=== PATIENT | female | born 1970 | race Caucasian/White ===

== ENCOUNTER 2022-11-08 22:51 | Emergency (ER) | payer BC, SELFPAY ==
[2022-11-08 23:02] VITALS: BP 113/67; PULSE 64; RESP 16; TEMP 36.1; O2SAT 97; BMI 32.6
--- NOTE | 2022-11-08 23:12 | ED.NURSE ---
Last tetanus was 09/10/21
--- NOTE | 2022-11-09 00:02 | ED.NURSE ---
Fingers soaked in hibaclense
[2022-11-09 01:22] VITALS: BP 128/68; PULSE 83; RESP 16
--- NOTE | 2022-11-13 02:48 | ED_ITS ---
HPI - Wound/Laceration General Chief Complaint: Laceration/Wound Stated Complaint: slammed right hand in the door of her car Time Seen by Provider: 11/08/22 22:53 History of Present Illness HPI narrative: 52-year-old woman presenting to the emergency department with concern of lacerations to her right hand fingers. She somehow strain to manage a number of things and slammed her finger in her car door. She does not think she really crushed it more like pinched it. Managed to control bleeding. Demonstrates that she can flex and extend at all joints. Was persuaded to come in and be evaluated. 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 Related Data Home Medications Medication Instructions Recorded Confirmed citalopram 10 mg tablet mg 11/08/22 montelukast 10 mg tablet mg 11/08/22 Allergies Allergy/AdvReac Type Severity Reaction Status Date / Time amoxicillin Allergy Intermediate Rash Verified 11/08/22 23:01 Sulfa (Sulfonamide Allergy Intermediate rash Verified 11/08/22 23:01 Antibiotics) Review of Systems Status of ROS: Reports: 6 or more systems reviewed and unremarkable except as noted in History and below PFSH PFS Social History Smoking Status: Never smoker Do you use any of these nicotine containing products: None Second hand tobacco smoke exposure: No How often do you have a drink containing alcohol: monthly or less How many standard drinks containing alcohol do you have on a typical day: 1 or 2 How often do you have six or more drinks on one occasion: Never AUDIT-C Alcohol total score: 1 Non-prescribed substance use: denies use service: No Exam Narrative: Exam Narrative: Very pleasant. Seems a little uncomfortable. Skin is warm dry. Other than the right hand no other injuries have been sustained. There is a linear intradermal straight line on the right index finger on the distal volar surface. Main injury appears to been sustained to the mid pad of the middle finger where there is a nearly 2 cm gapping laceration that bleeds when manipulated. Palpating more isolated over the bony aspect of the finger does not seem to elicit much more pain. Overall finger does not appear to be deformed. Able to flex and extend at all joints. Dorsum of the 4th finger middle phalanx is a nearly cm slightly gapping laceration as well where there also was is little blood with manipulation.. Const: Documenting provider has reviewed patient's vital signs: yes Course Vital Signs Vital signs: Initial Vital Signs Temperature 97.0 F L 11/08/22 23:02 Temperature Source Temporal Artery Scan 11/08/22 23:02 Pulse Rate 64 11/08/22 23:02 Pulse Rhythm 11/08/22 23:02 Respiratory Rate 16 11/08/22 23:02 Blood Pressure 113/67 11/08/22 23:02 Blood Pressure Mean 82 11/08/22 23:02 Pulse Oximetry 97 11/08/22 23:02 Oxygen Delivery Method 11/08/22 23:02 Vital Signs Temperature 97.0 F L 11/08/22 23:02 Pulse Rate 64 11/08/22 23:02 Respiratory Rate 16 11/08/22 23:02 Blood Pressure 113/67 11/08/22 23:02 Pulse Oximetry 97 11/08/22 23:02 Oxygen Delivery Method 11/08/22 23:02 Temperature 97.0 F L 11/08/22 23:02 Pulse Rate 83 11/09/22 01:22 Respiratory Rate 16 11/09/22 01:22 Blood Pressure 128/68 11/09/22 01:22 Pulse Oximetry 97 11/08/22 23:02 Oxygen Delivery Method 11/08/22 23:02 MDM - Wound/Laceration MDM Narrative Medical decision making narrative: We agree that she likely does not need x-ray imaging. Digital block is performed with lidocaine on the middle finger. Good wound approximation is achieved however she did feel a couple of the sutures. Sutured with interrupted Ethilon sutures with excellent wound approximation control bleeding. Prior to proceeding had been cleansed with Shur-Clens solution Did ultimately throw one suture in the dorsum of the 4th finger as well. Discharge Plan Discharge Clinical Impression: Finger laceration Patient Disposition: Home w/ Parent or Adult Condition: Improved Additional Instructions: Can clean up initially as needed. Sutures out in?9-10 days. Avoid soaking while sutures are in. Antibiotic ointment for 4-5 days and then to a dry bandage. Elevate for discomfort. Can take up to 800 mg of ibuprofen or up to 1000 mg of acetaminophen per dose. Alternative to the ibuprofen might be up to 500 mg of naproxen 2 times daily. Report spreading redness after 2 days, marked increase in pain, purulent drainage, fever. for scar reduction/wound healing -- after scab falls, can apply daily vitamin e oil, emu oil or silicone-containing ointments or bandages.? in particular, protect from the sun for the first 9 - 12 months. Prescriptions: No Action citalopram 10 mg tablet Label Comments: TAKE 1 TABLET (10 MG) BY MOUTH EVERY MORNING. montelukast 10 mg tablet Label Comments: TAKE 1 TABLET (10 MG) BY MOUTH AT BEDTIME. DURING ALLERGY SEASON Follow Up/Referrals: Sameera Bobo MD [Primary Care Provider] - Stand Alone Forms: [employer] Info Instructions
== END 2022-11-09 01:23 | disposition home or self-care (01) ==
PROVIDERS: Emergency Provider Family Medicine; PCP Family Medicine
DX: S61.212A Laceration without foreign body of right middle finger without damage to nail, initial encounter (principal); S61.210A Laceration without foreign body of right index finger without damage to nail, initial encounter; S61.216A Laceration without foreign body of right little finger without damage to nail, initial encounter; W23.0XXA Caught, crushed, jammed, or pinched between moving objects, initial encounter
CPT/HCPCS: 12001; 99283; 99284

== ENCOUNTER 2022-12-12 07:06 | Emergency (ER) | payer BC, SELFPAY ==
[2022-12-12 07:14] VITALS: BP 110/73; PULSE 76; RESP 20; TEMP 36.8; O2SAT 97; BMI 33.0
--- NOTE | 2022-12-12 07:24 | CRLHL7_ITS ---
For Patients: As a result of the Century Cures Act, medical imaging exams and procedure reports are released immediately into your electronic medical record. You may view this report before your referring provider. If you have questions, please contact your health care provider. INDICATION: Cough TECHNIQUE: Chest 2 views. COMPARISON: None. FINDINGS: Cardiovascular and mediastinum: Heart size and vasculature are normal in caliber and appearance. Lungs and pleural spaces: Lungs are clear. No sign of infiltrate. No sign of pleural effusion. No pneumothorax. Bones and soft tissues: No significant findings. IMPRESSION: No acute or significant findings. Dictated by Doe Pichardo MD @ 12/12/2022 7:58:22 AM (Electronically Signed)
[2022-12-12] MEDS: IPRAT-ALBUT 0.5-2.5 MG/3 ML NEB 1 NEB IH (07:30)
--- NOTE | 2022-12-12 07:43 | ED.URI ---
HPI - URI/Sore Throat General Date Seen: 12/12/22 Chief Complaint: Cough Stated Complaint: Asthma issues trouble breathing Time Seen by Provider: 12/12/22 07:17 Source: patient Mode of arrival: ambulatory Limitations: no limitations History of Present Illness HPI Narrative: Patient is a 52-year-old female presents here with a cough, she has had this now for 3 days, was at the clinic and started on prednisone, and Tessalon Perles she is also using her meter dose inhaler, but overnight the cough is worse, she does not really have a lot of shortness of breath with this, just any time she talks or takes a deep breath in she notices the cough she was the wanting to use her son's nebulizer overnight but it has been awhile since the use this and they were worried that might be too old. Denies a fever currently, initial COVID swab was negative at home. She is COVID vaccinated, history of asthma, with no intubations or hospitalizations secondary to this. MD elicited complaint: cough Pertinent past history: asthma Onset (ago): day(s) Consistency: intermittent Severity: severe Description of mucous: clear Able to tolerate fluids by mouth: Yes Exacerbating factors: speaking and deep breaths Relieving factors: OTC cold medicine and cough suppressant Associated symptoms: denies other symptoms and nasal congestion Treatments prior to arrival: none Related Data Home Medications Medication Instructions Recorded Confirmed citalopram 10 mg tablet mg 11/08/22 montelukast 10 mg tablet mg 11/08/22 Previous Rx's Medication Instructions Recorded albuterol sulfate 2.5 mg/0.5 mL 2.5 mg (0.5 mL) inhalation Q6-8H 12/12/22 solution for nebulization PRN #30 ea azithromycin 250 mg tablet See Rx Instructions PO .COMPLEX #6 12/12/22 (Zithromax Z-Elliott) tabs Allergies Allergy/AdvReac Type Severity Reaction Status Date / Time amoxicillin Allergy Intermediate Rash Verified 11/08/22 23:01 Sulfa (Sulfonamide Allergy Intermediate rash Verified 11/08/22 23:01 Antibiotics) Review of Systems Status of ROS: Reports: 10 or more systems reviewed and unremarkable except as noted in History and below PFSH PFSH Social History Smoking Status: Never smoker Do you use any of these nicotine containing products: None Second hand tobacco smoke exposure: No How often do you have a drink containing alcohol: monthly or less How many standard drinks containing alcohol do you have on a typical day: 1 or 2 How often do you have six or more drinks on one occasion: Never AUDIT-C Alcohol total score: 1 Non-prescribed substance use: denies use service: No Exam Narrative: Exam Narrative: Patient is the nice lady, she is the of our radiologist. She is speaking to me in full sentences but does have coughing paroxysms while she is talking to me. Vital signs are reassuring. Pupils are equal round reactive to light her TMs bilaterally are normal oropharynx is normal, nasal mucosa is engorged bilaterally with the exudate left greater than right, chest shows good air entry bilaterally with expiratory wheezes, there is no stridor, no crackles noted, heart sounds are normal, no clicks murmurs or gallops her abdomen is soft there is no guarding, no organomegaly, skin reveals no rashes, she moves all extremities independently and well. Negative Homans sign bilaterally with no edema. Const: Vital Signs, click to edit/add: Vital Signs - 24 hr 12/12/22 07:14 Temperature 98.3 F Pulse Rate [Right Pulse Oximeter] 76 Respiratory Rate 20 Blood Pressure [Ri ght Upper Arm] 110/73 Pulse Oximetry 97 Oxygen Delivery Me thod Room Air Documenting provider has reviewed patient's vital signs: yes Course Course Hospital Course: I talked with Baudilio and her , between the use of the albuterol/DuoNebs, along with the prednisone and the Zithromax I think she will improve, part of the problem is her lack of sleep, we talked about cough suppressants, a small supply of hydrocodone can help this. Her OPTOMETRIST shows no prescriptions, I went over the risks benefits and side effects with there and she would she will try this. She also use some MiraLax to avoid constipation. I have asked her to be off of her Celexa for a few days, as there can be a QT prolongation with the use of the Zithromax Vital Signs Vital signs: Initial Vital Signs Temperature 98.3 F 12/12/22 07:14 Temperature Source Temporal Artery Scan 12/12/22 07:14 Pulse Rate 76 12/12/22 07:14 Respiratory Rate 20 02/12/23 07:14 Blood Pressure 110/73 12/12/22 07:14 Blood Pressure Mean 85 12/12/22 07:14 Blood Pressure Position Sitting 12/12/22 07:14 Pulse Oximetry 97 12/12/22 07:14 Oxygen Delivery Method 12/12/22 07:14 Vital Signs Temperature 98.3 F 12/12/22 07:14 Pulse Rate 76 12/12/22 07:14 Respiratory Rate 20 12/12/22 07:14 Blood Pressure 110/73 12/12/22 07:14 Pulse Oximetry 97 12/12/22 07:14 Oxygen Delivery Method 12/12/22 07:14 Temperature 98.3 F 12/12/22 07:14 Pulse Rate 76 12/12/22 07:14 Respiratory Rate 20 12/12/22 07:14 Blood Pressure 110/73 12/12/22 07:14 Pulse Oximetry 97 12/12/22 07:14 Oxygen Delivery Method 12/12/22 07:14 MDM - URI/Sore Throat MDM Narrative Medical decision making narrative: During this evaluation I considered multiple diagnosis is such as croup, URI, pulmonary embolism pneumonia postnasal drip bronchospasm pleurisy, MS, and other possibilities. Medical Records Attestation: I reviewed the patient's medical records. Lab Data Attestation: I reviewed the patient's lab results. Imaging Data Chest x-ray: Attestation: I have reviewed the pertinent imaging results. My impression: Negative chest x-ray Radiologist's impression: Patient: BAUDILIO ROCK Facility: [facility] Site . Site : [id number] Study: XRay Chest 2V-12/12/2022 7:50:55 AM Ordering Physician: Jacki Perez Final Report: INDICATION: Cough TECHNIQUE: Chest 2 views. COMPARISON: None. FINDINGS: Cardiovascular and mediastinum: Heart size and vasculature are normal in caliber and appearance. Lungs and pleural spaces: Lungs are clear. No sign of infiltrate. No sign of pleural effusion. No pneumothorax. Bones and soft tissues: No significant findings. IMPRESSION: No acute or significant findings. Dictated by Doe Pichardo MD @ 12/12/2022 7:58:22 AM (Electronic Signature) Discharge Plan Discharge Clinical Impression: Cough, Bronchospasm Patient Disposition: Home, Self-Care Condition: Stable Instructions: Acute Cough (ED) Additional Instructions: Home rest use of Zithromax along with her prednisone, I have given you prescription for nebulizer treatments you can using her machine you have at home, use these up to every 6 hours in you can use your meter dose inhaler in between, I am not really sure if those Tessalon Perles work at all, I would suggest use Tylenol 1 g p.o. t.i.d. also, see how it goes but I think he will slowly improve with this. I have given directions to my nurse to call you for COVID test is positive Prescriptions: New albuterol sulfate 2.5 mg/0.5 mL solution for nebulization 2.5 mg inhalation Q6-8H PRNQty: 30 1RF azithromycin [Zithromax Z-Elliott] 250 mg tablet See Rx Instructions .ROUTE .COMPLEX Qty: 6 0RF Rx Instructions: For 250 mg dose pack: take 500 mg today (day 1), then 250 mg for 4 days (days 2-5) No Action citalopram 10 mg tablet Label Comments: TAKE 1 TABLET (10 MG) BY MOUTH EVERY MORNING. montelukast 10 mg tablet Label Comments: TAKE 1 TABLET (10 MG) BY MOUTH AT BEDTIME. DURING ALLERGY SEASON Follow Up/Referrals: Sameera Bobo MD [Primary Care Provider] - Stand Alone Forms: [employer] Info Instructions
[2022-12-12 08:16] VITALS: PULSE 85; O2SAT 97
[2022-12-12 08:27] LABS: PCR FLU A Negative PCR FLU A (Negative); PCR FLU B Negative PCR FLU B (Negative); PCR RSV Negative PCR RSV (Negative); SARS PCR* Negative SARS-CoV-2 (Negative)
--- NOTE | 2022-12-12 09:19 | ED.NURSE ---
Pt called and updated with negative swab results.
== END 2022-12-12 08:20 | disposition home or self-care (01) ==
PROVIDERS: Emergency Provider Family Medicine; PCP Family Medicine
DX: J98.01 Acute bronchospasm (principal)
CPT/HCPCS: 71046; 87502; 87634; 87635; 94640; 99283; 99284

== ENCOUNTER 2023-09-20 13:30 | Emergency (ER) | payer BC, SELFPAY ==
[2023-09-20] VITALS (8 sets, daily range): BP systolic 95–119; BP diastolic 46–70; PULSE 89–97; RESP 20; TEMP 38.2; O2SAT 92–96; BMI 30.9
--- NOTE | 2023-09-20 13:42 | CRLHL7_ITS ---
For Patients: As a result of the Cures Act, medical imaging exams and procedure reports are released immediately into your electronic medical record. You may view this report before your referring provider. If you have questions, please contact your health care provider. INDICATION: Covid positive with shortness of breath TECHNIQUE: Chest 2 views. COMPARISON: Chest radiograph on 12/12/2022 FINDINGS: Cardiovascular and mediastinum: Heart size and vasculature are normal in caliber and appearance. Lungs and pleural spaces: Lungs are clear. No sign of infiltrate or mass. No sign of pleural effusion. No pneumothorax. Bones and soft tissues: No significant findings. IMPRESSION: No acute cardiopulmonary process. Dictated by Artis Pacheco MD @ 09/20/2023 2:58:30 PM (Electronically Signed)
--- NOTE | 2023-09-20 14:05 | ED.GENADULT ---
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 Some mild shortness of breath, associated with this. Tested positive for covid yesterday at home. Other family members also positive. Did not take any meds at home, as was retching. Talked with her and brought here. Related Data Home Medications Medication Instructions Recorded Confirmed citalopram 10 mg tablet mg 11/08/22 montelukast 10 mg tablet mg 11/08/22 Previous Rx's Medication Instructions Recorded albuterol sulfate 2.5 mg/0.5 mL 2.5 mg (0.5 mL) inhalation Q6-8H 12/12/22 solution for nebulization PRN #30 ea azithromycin 250 mg tablet See Rx Instructions PO .COMPLEX #6 12/12/22 (Zithromax Z-Elliott) tabs nirmatrelvir 300 mg (150 mg See Rx Instructions PO .COMPLEX 09/20/23 x2)-ritonavir 100 mg tablet,dose #30 ea pack (Paxlovid) ondansetron 4 mg disintegrating 4 mg PO BID #15 tabs 09/20/23 tablet prednisone 20 mg tablet 20 mg PO BID #10 tabs 09/20/23 Allergies Allergy/AdvReac Type Severity Reaction Status Date / Time amoxicillin Allergy Intermediate Rash Verified 11/08/22 23:01 Sulfa (Sulfonamide Allergy Intermediate rash Verified 11/08/22 23:01 Antibiotics) Review of Systems Status of ROS: Reports: 10 or more systems reviewed and unremarkable except as noted in History and below PFSH PFSH Social History Smoking Status: Never smoker Do you use any of these nicotine containing products: None Second hand tobacco smoke exposure: No How often do you have a drink containing alcohol: monthly or less How many standard drinks containing alcohol do you have on a typical day: 1 or 2 How often do you have six or more drinks on one occasion: Never AUDIT-C Alcohol total score: 1 Non-prescribed substance use: denies use service: No Exam Narrative: Exam Narrative: Patient is seen in Room 4, alert and oriented x 3 Const: Vital Signs, click to edit/add: Vital Signs - 24 hr 09/20/23 13:39 09/20/23 15:46 09/20/23 16:00 Temperature 100.8 F H Pulse Rate 92 92 Pulse Rate [Pulse Oximeter] 97 Respiratory Rate 20 Blood Pressure Blood Pressure [Le ft Upper Arm] 119/70 Pulse Oximetry 94 92 94 Oxygen Delivery Me thod Room Air 09/20/23 16:01 09/20/23 16:15 Temperature Pulse Rate 89 93 Pulse Rate [Pulse Oximeter] Respiratory Rate Blood Pressure 98/46 L Blood Pressure [Le ft Upper Arm] Pulse Oximetry 94 96 Oxygen Delivery Me thod Documenting provider has reviewed patient's vital signs: yes Common normals: no apparent distress, oriented x3, alert and well nourished General appearance: cooperative, well kempt, well developed and ill appearing Orientation/consciousness: Yes awake, Yes oriented to person, Yes oriented to place and Yes oriented to time HENMT: Common normals: normocephalic, head/scalp atraumatic, hearing grossly normal bilaterally, external ears normal, EAC's normal, TM's normal bilaterally, external nose normal, nasal mucous membranes and turbinates normal, moist oral mucous membranes, oropharynx normal, dentition normal and gingiva normal Head and scalp: normal to inspection, normocephalic and atraumatic Face and sinus: normal facial exam, sinuses nontender and face symmetric Nose: external nose normal and nasal mucous membranes and turbinates normal External ear: external ears normal and no preauricular adenopathy External auditory canal: EAC's normal Tympanic membrane: TM's normal bilaterally Mouth: oral and palatal mucosa normal, lip normal, tongue normal and salivary glands and ducts normal Throat: posterior oropharynx normal Eye: Common normals: PERRL, EOMs intact bilaterally and conjunctivae normal General eye: normal appearance of both eyes and normal light reflex Conjunctiva: conjunctiva(e) normal Pupil: PERRL and accommodation reflex normal Direct Ophthalmoscopy: normal light reflex Neck & C-Spine: Common normals: full ROM, no lymphadenopathy, supple, no meningeal signs, no JVD, thyroid normal and no carotid bruits General: normal visual inspection Thyroid: thyroid normal Lymph: Lymphatic: no lymphadenopathy noted Chest: Common normals: inspection of chest normal, palpation of chest normal, inspection of breasts normal and palpation of breasts normal Resp: Common normals: normal respiratory effort, no retractions, no use of accessory muscles and percussion normal Auscultation: wheezes upper bilaterally Percussion: percussion normal Cardio: Common normals: no JVD, regular rate, regular rhythm, S1 normal heart sound, S2 normal heart sound, no gallops, no clicks, no murmurs, no rub and peripheral pulses 2+ throughout Palpation: normal PMI Rate: regular rate Rhythm: regular rhythm Heart sounds: S1 normal and S2 normal Peripheral pulses: pulses 2+ throughout GI: Common normals: Normal to inspection, nondistended, normoactive bowel sounds present, soft to palpation, non-tender, no hepatosplenomegaly, no masses and no bruits Palpation: soft and no hepatosplenomegaly Rectal Exam - Female: deferred : Common normals: no CVA tenderness, external appearance normal, appearance of the vagina normal, appearance of the cervix normal, adnexae non-tender and no adnexal masses Bladder/kidney exam: no CVA tenderness Back & Pelvis: Common normals: no CVA tenderness Extremity: Common normals: normal to inspection, full ROM, normal capillary refill, no joint enlargement, no clubbing, cyanosis or edema, no calf tenderness and no pedal edema Neuro: Common normals: oriented x3 Sensorium/orientation: awake, alert, oriented to person, oriented to place and oriented to time Meningeal signs: no meningeal signs Psych: Appearance: well kempt Skin: Common normals: no rashes or lesions noted General skin exam: no rashes or lesions noted Course Vital Signs Vital signs: Initial Vital Signs Temperature 100.8 F H 09/20/23 13:39 Temperature Source Temporal Artery Scan 09/20/23 13:39 Pulse Rate 97 09/20/23 13:39 Pulse Rhythm Regular 09/20/23 13:39 Respiratory Rate 20 09/20/23 13:39 Blood Pressure 119/70 09/20/23 13:39 Blood Pressure Mean 86 09/20/23 13:39 Blood Pressure Position Supine 09/20/23 13:39 Pulse Oximetry 94 09/20/23 13:39 Oxygen Delivery Method Room Air 09/20/23 13:39 Vital Signs Temperature 100.8 F H 09/20/23 13:39 Pulse Rate 97 09/20/23 13:39 Respiratory Rate 20 09/20/23 13:39 Blood Pressure 119/70 09/20/23 13:39 Pulse Oximetry 94 09/20/23 13:39 Oxygen Delivery Method Room Air 09/20/23 13:39 Temperature 100.8 F H 09/20/23 13:39 Pulse Rate 93 09/20/23 16:15 Respiratory Rate 20 09/20/23 13:39 Blood Pressure 98/46 L 09/20/23 16:01 Pulse Oximetry 96 09/20/23 16:15 Oxygen Delivery Method Room Air 09/20/23 13:39 Medications Administered Medications: Discontinued Medications Generic Name Dose Route Start Last Admin Trade Name Freq PRN Reason Stop Dose Admin Acetaminophen 1,000 mg 09/20/23 13:51 09/20/23 14:38 Acetaminophen 500 Mg Tablet PO 09/20/23 13:52 1,000 mg ONCE ONE Administration Sodium Chloride 1,000 mls @ 1,000 mls/hr 09/20/23 13:45 09/20/23 15:28 0.9 % Sodium Chloride 1000 Ml IV 09/20/23 14:44 Infused .Q1H PRABHJOT Infusion Sodium Chloride 1,000 mls @ 1,000 mls/hr 09/20/23 14:45 09/20/23 15:28 0.9 % Sodium Chloride 1000 Ml IV 09/20/23 15:44 1,000 mls/hr .Q1H PRABHJOT Administration Ketorolac Tromethamine 30 mg 09/20/23 13:42 09/20/23 14:37 Ketorolac 30 Mg/Ml Inj IVP 09/20/23 13:43 30 mg ONCE ONE Administration Ondansetron HCl 4 mg 09/20/23 13:42 09/20/23 14:37 Ondansetron 2 Mg/Ml Inj IVP 09/20/23 13:43 4 mg ONCE ONE Administration Medical Decision Making MDM Narrative Medical decision making narrative: Life-threatening differential diagnosis includes occluded COPD exacerbation, pulmonary edema, acute coronary syndromes, pulmonary embolism, pneumonia, and pneumothorax. Other differential diagnosis considerations include asthma, bronchitis as well as other etiologies Differential diagnosis includes but is not limited to viral gastroenteritis, drug food poisoning, pyloric stenosis, gastritis, pancreatitis, hepatitis, cholecystitis, appendicitis, bowel obstruction, hyperemesis, cyclic vomiting syndrome, bulimia nervosa, migraine headache, motion sickness and medication side effect. These include the life threatening complications of appendicitis, drug food poisoning and bowel obstruction. I reviewed with them the laboratory results which showed normal D-dimer, normal troponin, normal BNP, these are all reassuring results, her chest x-ray was also normal. EKG showed normal QT, so I think we can use a little Zofran as needed, with the caveats that I would go to b.i.d.. Discussed within the use of antiviral is for the COVID, and I think given her back that she is an asthmatic this would be indicated. She also was slightly wheezy, we will use a little bit of prednisone for this. I do not think this is secondary infection and do not think we need to cover her with antibiotics. I did offer her some stronger pain medications I eat narcotic medication she declined this. Lab Data Lab results reviewed: Yes I reviewed the patient's lab results Labs: Lab Results 09/20/23 Range/Units 14:25 WBC 6.69 (4.50-11.00) K/uL RBC 4.74 (4.00-5.20) m/uL Hgb 14.3 (12.0-16.0) gm/dL Hct 42.6 (33.0-51.0) % MCV 90 (80-100) fL MCH 30 (26-34) pg MCHC 34 (32-36) gm/dL RDW Coeff of [place] 12.4 (11.5-15.5) % Plt Count 168 (140-440) K/uL Neut % (Auto) 85.4 H (42.0-72.0) % Lymph % (Auto) 5.7 L (20-44) % [place] % (Auto) 8.4 (0.0-11.0) % Eos % (Auto) 0.1 (0.0-7.0) % Baso % (Auto) 0.3 (0.0-3.0) % Neut # (Auto) 5.70 (1.7-7.0) K/uL Lymph # (Auto) 0.40 L (0.90-2.90) K/uL [place] # (Auto) 0.60 (0.00-0.90) K/UL Eos # (Auto) 0.01 (0.00-0.50) K/uL Baso # (Auto) 0.02 (0.00-0.30) K/uL Abs Immat Gran (auto) 0.01 (0.00-0.30) K/uL Imm/Tot Granulo (auto) 0.1 % D-Dimer Quant (PE/DVT) 0.29 (0.00-0.50) ug/ml Sodium 141 (135-149) mmol/L Potassium 3.3 L (3.6-5.1) mmol/L Chloride 105 (96-114) mmol/L Carbon Dioxide 24 (20-32) mmol/L Anion Gap 12 (7-15) mEq/L BUN 13 (7-30) mg/dL Creatinine 0.8 (0.5-1.5) mg/dL Estimated Creat Clear 71.84 Estimated GFR 89 ml/min Glucose 162 H (60-115) mg/dL Calcium 8.8 (8.4-10.6) mg/dL C-Reactive Protein 2.4 H (0.5-1.0) mg/dL NT-Pro-B Natriuret Pep 401 pg/mL POC Troponin I 0.00 L (0.01-0.04) ng/ml Imaging Data Chest x-ray: Attestation: I have reviewed the pertinent imaging results. My impression: within normal limits Radiologist's impression: discussed with radiology normal ECG Data Attestation: I personally reviewed and interpreted this ECG as follows: Interpretation: Normal sinus rhythm normal EKG no acute changes, normal QT Discharge Plan Discharge Clinical Impression: COVID-19, Dehydration Patient Disposition: Home w/ Parent or Adult Condition: Improved Instructions: COVID-19 (Coronavirus Disease 2019) (ED) Additional Instructions: Home rest use of anti COVID medication, along with the prednisone in the Zofran. Rest, if your doing worse, with shortness of breath or other issues I recommend that she come back and be seen. You should be feeling quite a bit better in a day or 2. Prescriptions: New ondansetron 4 mg tablet,disintegrating 4 mg PO BID Qty: 15 0RF Paxlovid 300 mg (150 mg x 2)-100 mg tablets,dose pack See Rx Instructions .ROUTE .COMPLEX Qty: 30 0RF Rx Instructions: take TWO 150 mg tablets of nirmatrelvir with ONE 100 mg tablet of ritonavir twice daily for 5 days prednisone 20 mg tablet 20 mg PO BID Qty: 10 0RF No Action albuterol sulfate 2.5 mg/0.5 mL solution for nebulization 2.5 mg inhalation Q6-8H PRNQty: 30 1RF azithromycin [Zithromax Z-Elliott] 250 mg tablet See Rx Instructions .ROUTE .COMPLEX Qty: 6 0RF Rx Instructions: For 250 mg dose pack: take 500 mg today (day 1), then 250 mg for 4 days (days 2-5) citalopram 10 mg tablet Patient Comments: TAKE 1 TABLET (10 MG) BY MOUTH EVERY MORNING. montelukast 10 mg tablet Patient Comments: TAKE 1 TABLET (10 MG) BY MOUTH AT BEDTIME. DURING ALLERGY SEASON Follow Up/Referrals: Sameera Bobo MD [Primary Care Provider] - Stand Alone Forms: [employer] Info Instructions
[2023-09-20] MEDS: 0.9 % SODIUM CHLORIDE 1000 ml 1,000 ML IV ×2 (14:20→15:28)
[2023-09-20 14:32] LABS: Basophils Absolute Auto 0.02 K/uL (0.00-0.30); Basophils Percent Auto 0.3 % (0.0-3.0); Eosinophils Absolute Auto 0.01 K/uL (0.00-0.50); Eosinophils Percent Auto 0.1 % (0.0-7.0); Hematocrit 42.6 % (33.0-51.0); Hemoglobin* 14.3 gm/dL (12.0-16.0); Immature Granulocytes Abs Auto 0.01 K/uL (0.00-0.30); Immature Granulocytes Pct Auto 0.1 %; Lymphocytes Percent Auto 5.7 % (20-44); Mean Corpuscular HGB Conc 34 gm/dL (32-36); Mean Corpuscular Hemoglobin 30 pg (26-34); Mean Corpuscular Volume 90 fL (80-100); Monocytes Percent Auto 8.4 % (0.0-11.0); Neutrophils Percent Auto 85.4 % (42.0-72.0); Platelet Count* 168 K/uL (140-440); RDW Coefficient of Variation % 12.4 % (11.5-15.5); Red Blood Count 4.74 m/uL (4.00-5.20); White Blood Count* 6.69 K/uL (4.50-11.00)
[2023-09-20] MEDS: ONDANSETRON 2 MG/ML inj 4 MG IVP (14:37)
[2023-09-20] MEDS: KETOROLAC 30 MG/ML inj IVP (14:37)
[2023-09-20] MEDS: ACETAMINOPHEN 500 MG TABLET 1000 MG PO (14:38)
[2023-09-20 14:45] LABS: Chloride* 105 mmol/L (96-114); Slide Review Reflex No; Sodium* 141 mmol/L (135-149)
[2023-09-20 14:46] LABS: Potassium* 3.3 mmol/L (3.6-5.1)
[2023-09-20 14:48] LABS: Creatinine* 0.8 mg/dL (0.5-1.5); Est. Creatinine Clearance* 71.84; Estimated Glomerular Filt Rate 89 ml/min
[2023-09-20 14:49] LABS: Anion Gap 12 mEq/L (7-15); Blood Urea Nitrogen* 13 mg/dL (7-30); Carbon Dioxide* 24 mmol/L (20-32); Glucose* 162 mg/dL (60-115)
[2023-09-20 14:50] LABS: Calcium* 8.8 mg/dL (8.4-10.6)
[2023-09-20 14:52] LABS: C Reactive Protein* 2.4 mg/dL (0.5-1.0); D Dimer Quantitative* 0.29 ug/ml (0.00-0.50)
[2023-09-20 14:59] LABS: NT Pro B Type NatriureticPept* 401 pg/mL
== END 2023-09-20 16:46 | disposition home or self-care (01) ==
PROVIDERS: Emergency Provider Family Medicine; PCP Family Medicine
DX: U07.1 COVID-19 (principal); E86.0 Dehydration
CPT/HCPCS: 36415; 71046; 80048; 83880; 84484; 85025; 85379; 86140; 87040; 93005; 94761; 96374; 96375; 99284; A9270; J1885; J2405; J7030